=== PATIENT | female | born 1965 | race Caucasian/White ===

== ENCOUNTER 2020-02-09 19:04 | Emergency (ER) | payer OTHER ==
[2020-02-09 21:23] VITALS: BP 126/60
== END 2020-02-09 21:22 | disposition left against medical advice (07) ==
LOC: ED 19:04
DX: R42 Dizziness and giddiness (principal); R55 Syncope and collapse; M54.2 Cervicalgia; Z53.21 Procedure and treatment not carried out due to patient leaving prior to being seen by health care provider
CPT/HCPCS: 93005; 99281